=== PATIENT | male | born 1970 | race Two or more races ===

== ENCOUNTER 2025-08-14 15:50 | Outpatient (AMB) | payer OTHER, SELFPAY ==
--- NOTE | 2025-08-14 15:55 | MHC.OFFVIS ---
Intake Visit Reasons: 1 yr Allergies No Known Allergies Allergy (Unverified 08/14/25 15:55) Medication List - Last Reconciled 08/14/25 by Velia Ku CNP carbamazepine 200 mg PO TID levothyroxine 25 mcg PO DAILY HPI Comments Details: He was doing okay. He was taking carbamazepine three times a day. No seizure recurrence. No medication side effects. Sleep was okay. Mood was okay. He has a long history of well controlled seizures, partial onset with secondary generalization, has been seizure-free for 20+ years with no side effects on Tegretol 200 mg 3 times a day. He was first seen in this office in 1990. He had 1 syncopal episodes at age 16 and 3 when he was 21. He suddenly jerked and passed out and his eyes would roll up and he would stiffen in an extended position, breathe heavily and was amnesic. His EEG was consistent with bilateral generalized seizures with synchronous discharges. He was initially treated with Dilantin but had side effects and subsequently switched to Tegretol with which he has done very well. He has not had any seizures more than 20 years at this point. [facility] Medical History (Updated 08/14/25 @ 15:57 by Velia Ku CNP) Hypothyroidism Review of Systems Const Denies chills, Denies daytime sleepiness, Denies difficulty sleeping, Denies fatigue, Denies fever(s), Denies frequent falls, Denies headache(s), Denies increased appetite, Denies poor appetite, Denies snoring, Denies weakness, Denies weight gain and Denies weight loss Eyes Denies loss of vision ENT Denies vertigo, Denies dizziness, Denies headache(s) and Denies neck pain Card Denies chest pain at rest, Denies chest pain with activity, Denies syncope, Denies leg edema, Denies palpitations, Denies dyspnea and Denies dyspnea on exertion Resp Denies cough, Denies dyspnea, Denies dyspnea on exertion and Denies snoring GI Denies abdominal pain, Denies constipation, Denies heartburn, Denies diarrhea and Denies nausea Denies urinary frequency, Denies urinary incontinence and Denies urinary urgency Musc Denies abnormal gait, Denies back pain, Denies myalgias, Denies arthralgias, Denies neck pain, Denies numbness and Denies tingling Neuro Denies abnormal gait, Denies vertigo, Denies dizziness, Denies syncope, Denies frequent falls, Denies headache(s), Denies lack of coordination, Denies loss of vision, Denies memory loss, Denies numbness, Denies Other visual disturbances, Denies restless legs, Denies seizure-like activity, Denies tingling, Denies paresthesias, Denies tremor(s) and Denies weakness Psych Denies anxiety, Denies depression, Denies auditory hallucinations, Denies memory loss and Denies visual hallucinations Endo Denies fatigue and Denies palpitations Physical Exam Const Other: General Appearance:? normal, in no acute distress. Heart:? S1, S2 normal, no murmurs. Lungs:? clear anteriorly and posteriorly. Musculoskeletal:? normal. Extremities:? no edema. Psych:? alert, oriented, cognitive function intact, cooperative with exam. Neuro Other: Abnormal Neurological Findings:?none.? Mental Status: alert and oriented X 3. Normal attention, orientation, memory, and affect. Cranial Nerves: Pupils are equal, round, and reactive to light. External ocular muscles are intact. Visual goldsmith are full, no ptosis. Face is symmetrical, no facial weakness or droop. Facial sensations are normal. Tongue protrudes in midline. Palate elevates symmetrically. Shoulder shrugging is normal Motor Examination: Normal muscle tone, bulk and strength. No atrophy or fasciculations. No drift of the extended upper extremities. DTR 2+. Plantars are flexor. Sensory Exam: Normal light touch, temperature, pinprick, vibration, and joint-position sensations. Rhomberg sign is absent. Coordination: No ataxia. No titubation. Gait Exam: Within normal limits. Cerebellar Signs: [id number] is okay. Extrapyramidal System: No tremor, rigidity with normal facial expressions. No bradykinesia. No bradyphrenia. Normal arm swing and posture. No propulsion or retropulsion. Speech: Normal. Assessment & Plan Assessment & Plan (1) Seizure disorder: Code(s): G40.909 - Epilepsy, unspecified, not intractable, without status epilepticus Category: Medical Plan: Continue carbamazepine 200mg 1 tablet three times a day. Coding Level of Care Code Est Pt Level 3 (10207) Diagnoses Seizure disorder G40.909
--- OUTSIDE RECORDS SUMMARY | 2025-08-14 21:56 | XMS_ITS | Clinical Summary ---
Author Organization [address] [facility] Address [address] [place] [address] Phone Care Team Providers Care Air Crew Officer Name Role Phone Maya Gomez MD Primary Care Provider [phone] Allergies No known active allergies Medications carBAMazepine (TegretoL) 200 mg tablet Take 1 Tab by mouth daily. 12/16/2017 Active ibuprofen (ADVIL,MOTRIN) 800 mg tablet TAKE 1 TABLET BY MOUTH EVERY 8 HOURS NEEDED FOR PAIN 09/20/2016 Active levothyroxine (SYNTHROID, LEVOTHROID) 25 mcg tablet Take 1 tablet (25 mcg total) by mouth 1 (one) time each day. 90 tablet 3 10/10/2024 Active Active Problems Problem Noted Date Diagnosed Date Seizure disorder (CMS/HCC V24, CMS/HCC V28) 03/2024 Overview (09/28/2024): Dr. Irizarry. 21 years seizure free Immunizations Immunization Administration Dates Next Due DTaP (Infanrix) 6wks to less than 7yo 02/15/2008 Surgical History Surgery Date Site/Laterality Comments OTHER SURGICAL HISTORY PROCEDURE: DENIES PREVIOUS SURGERY Medical History Medical History Date Comments Seizure disorder (CMS/HCC V2 4, CMS/HCC V28) DX:Seizure disorder (HCC); C OMMENT: Dr. Irizarry Family History Medical History Relation Name Comments Lung cancer Maternal Grandfather Diabetes Mother Diabetes Sister 1 Relation Name Status Comments Brother 1 Alive Sz Brother 2 Alive Brother 3 Alive Brother 4 Alive Brother 5 Alive Brother 6 Alive Father Maternal Grandfather Mother Alive DM Sister 1 Alive Sister 2 Alive Son 1 Alive Sz Son 2 Alive Social History Tobacco Use Types Packs/Day Years Used Date Smoking Tobacco: Never Smokeless Tobacco: Never Alcohol Use Standard Drinks/Week Comments No 0 (1 standard drink = 0.6 oz pur e alcohol) Sex and Gender Information Value Date Recorded Sex Assigned at Not on file Legal Sex Male 5:43 AM EST Gender Identity Not on file Sexual Orientation Not on file Obstetrics History Last Filed Vital Signs Vital Sign Reading Time Taken Comments Blood Pressure 120/82 10/10/2024 2:05 PM EST Pulse 64 10/10/2024 2:05 PM EST Temperature - - Respiratory Rate - - Oxygen Saturation 99% 10/10/2024 2:05 PM EST Inhaled Oxygen Concentration - - Weight 93 kg (205 lb) 10/10/2024 2:05 PM EST Height 167.6 cm (5' 6 ) 10/10/2024 2:05 PM EST Body Mass Index 33.09 10/10/2024 2:05 PM EST Plan of Treatment Upcoming Encounters Date Type Department Care Team (Late st Contact Info) Description 10/11/2025 2:30 PM EST Office Visit Internal Medicine - [place] [address] [facility] [address] [place] [phone] Maya Gomez MD [address] [facility] [address] [place] [phone] Health Maintenance Due Date Last Done Comments Colorectal Cancer Screening: Colonoscopy 1969 Hepatitis B Vaccines (1 of 3 - 19+ 3-dose series) 1988 DTaP,Tdap,and Td Vaccines (2 - Tdap) 02/14/2018 02/15/2008 Pneumococcal Vaccine: 50+ Years (1 of 1 - PCV) 2019 Zoster Vaccines (1 of 2) 2019 HIV Screening 09/26/2022 Hepatitis C Screening 09/26/2022 Social Influencers of Health Screening 09/26/2022 Depression Screening 10/24/2024 COVID-19 Vaccine (3 - 2024-2 6 season) 2025 11/22/2021, 11/01/2021 Influenza Vaccine (#1) 2025 Cholesterol Screening (Lipid Panel) 10/26/2029 10/26/2024, 07/06/2023 RSV Immunization Adult Patients (1 - 1-dose 75+ series) 2044 HIB Vaccines Aged Out No longer eligi ble based on patient's age to complete this topic HPV Vaccines Aged Out No longer eligi ble based on patient's age to complete this topic Hepatitis A Vaccines Aged Out No long er eligible based on patient's age to complete this topic IPV Vaccines Aged Out No longer eligi ble based on patient's age to complete this topic MMR Vaccines Aged Out No longer eligi ble based on patient's age to complete this topic Meningococcal ACWY Vaccine Aged Out N o longer eligible based on patient's age to complete this topic Meningococcal B Vaccine Aged Out No l onger eligible based on patient's age to complete this topic RSV Immunization Patients Under 20 months Aged Out No longer eligible b ased on patient's age to complete this topic Varicella Vaccines Aged Out No longer eligible based on patient's age to complete this topic Procedures Procedure Name Priority Date/Time Associated Diagnosis Comments LIPID PANEL WITH REFLEX TO DIRECT LDL Routine 10/26/2024 8:04 AM EST Adult general medical examination Hypothyroidism (acquired) Dyslipidemia from Last 3 Months or Most Recently Relevant to Health Maintenance Results * (ABNORMAL) Lipid panel with reflex to direct LDL (10/26/2024 8:04 AM EST) Cholesterol 246(H) 0 - 200 mg/dL LAB CHEMISTRY METHOD 10/26/2024 11:25 AM EST [facility] Triglycerides 160(H) 0 - 150 mg/dL LAB CHEMISTRY METHOD 10/26/2024 11:25 AM EST [facility] HDL 50 >=40 mg/dL LAB CHEMISTRY METHOD 10/26/2024 11:25 AM EST [facility] LDL Calculated 164(H) 0 - 100 mg/dL LAB CHEMISTRY METHOD 10/26/2024 11:25 AM EST [facility] VLDL Cholesterol Joseph 32 mg/dL LAB CHEMISTRY METHOD 10/26/2024 11:25 AM EST [facility] Non HDL Chol. (LDL+VLDL) 196(H) <145 mg/dL LAB CHEMISTRY METHOD 10/26/2024 11:25 AM [facility] Chol/HDL Ratio 4.9(H) 0.0 - 4.4 LAB CHEMISTRY METHOD 10/26/2024 11:25 AM EST [facility] Blood Venous blood specimen / Unknown Venipuncture / Unknown 10/26/2024 8:04 AM EST 10/26/2024 8:04 AM EST Maya Gomez MD LAB BLOOD ORDERABLES Final Res ult [facility] [address] [place] [address], from Last 3 Months or Most Recently Relevant to Health Maintenance Insurance [facility] [employer] Care Teams Air Crew Officer Relationship Specialty Start Date End Date Maya Gomez MD PCP - General Internal Medicine 02/03/22
== END 2025-08-14 16:03 | disposition home or self-care (01) ==
LOC: HO.HSM 15:50
PROVIDERS: PCP Internal Medicine; Referring Provider Internal Medicine; Visit Provider Registered Nurse
DX: G40.909 Epilepsy, unspecified, not intractable, without status epilepticus (principal)
CPT/HCPCS: 99213